=== PATIENT | female | born 1980 | race Caucasian/White ===

== ENCOUNTER 2016-11-28 18:02 | Emergency (ER) | payer OTHER, MEDICAID ==
[2016-11-28] MEDS ORDERED: LORazepam 2 MG/ML INJ ONE (18:41)
[2016-11-28] MEDS ORDERED: ONDANSETRON 4 MG/2 ML VIAL IVP ONE (18:43)
[2016-11-28] MEDS ORDERED: NS 1,000 ML IV ONE (18:43)
--- NOTE | 2016-11-28 18:57 | EDPHY ---
General Time Seen by Provider: 11/28/16 18:25 Narrative: CHIEF COMPLAINT: Seizure, head injury HISTORY OF PRESENT ILLNESS: Mother and father present patient. Mother says that she was walking in her home when she noticed that her daughter was about to have a seizure. She attempt to help her when she started to have seizure but she could not reach her. The patient started to have a tonic-clonic seizure and fell to the floor, striking her back of her head and her face. This lasted for several seconds. Was no incontinence. No apparent injury to the mouth or tongue. She was postictal for 7-10 minutes. She is reportedly back to baseline at this time. She is complaining of a posterior headache and there is an abrasion in this area. She also has some facial pain. No nausea. No recent illness. She does have a history of remote CVA with subsequent epilepsy. She is on Lamictal, primidone, and p.r.n. Klonopin. No recurrent seizure since today's episode. She normally has 1 approximately once a month. There have been increased stressors over the past week in their home, which the mother feels has contribute to this as it has in the past. Her neurologist is Dr. Morrison. REVIEW OF SYSTEMS: Ten systems reviewed and are negative unless otherwise noted in the HPI PERTINENT MEDICAL HISTORY: EXAMINATION General Appearance: Alert, no distress Head: normocephalic. No crepitus or deformity. There is mild abrasion hematoma to the occiput. No Harvey sign. No raccoon eyes. Eyes: Pupils equal and round, no conjunctival pallor or injection. EOMs intact. No nystagmus. ENT, Mouth: Mucous membranes moist. Uvula midline. No erythema, laceration or ecchymosis. Neck: Normal inspection, supple, non-tender. Painless range of motion all planes. No rigidity or meningismus. Respiratory: Lungs are clear to auscultation. No wheezing, rhonchi or crackles. Cardiovascular: Regular rate and rhythm. No murmur. Pulses intact distally. Gastrointestinal: Abdomen is soft and nontender. No CVA tenderness. No tympany rigidity. Back: non-tender, no bony abnormalities Neurological: A&O, nonfocal. Strength is symmetric in all limbs. Tonic- clonic activity witnessed during my examination. Skin: Warm and dry, no rash Extremities: Nontender, no pedal edema Psychiatric: Mood and affect normal DIFFERENTIAL DIAGNOSES: Including but not limited to epilepsy, seizure disorder, recurrent seizure, status epilepticus MDM: 6:40 p.m. Seizure in a patient with known epilepsy. At the end of my history of present illness examination, the patient did have a seizure. She exhibited generalized , tonic-clonic activity. This lasted approximately 10-15 seconds. She was postictal immediately but awake and alert with no distress. No medications were administered and she spontaneously resolved. 7:[address] scan of the head is unremarkable for trauma. Labs are within normal limits. Lamictal level is pending as is the primidone level. I re-evaluated the patient. She is awake and alert. She is conversing appropriately. No acute distress. I had originally misunderstood the family my initial history of present illness. This was actually the 9th seizure she has had today that I witnessed, and this is normal for her. She reports that once a month she will have multiple seizures in a day. Their primary concern was from the fall and closed head injury. CT scan does not show any trauma nor did she have any neuro deficits. They are comfortable with being discharged home and actually prefer this at this time. They will follow up with her established neurologist this week. Return to ER for any subsequent falls or injury. She is discharged home with normal conversation in no acute distress. SUPERVISION: This patient was independently evaluated without direct examination by the attending physician. Case was discussed with attending physician. - History Smoking Status: Never smoked - Objective Vital Signs: Initial Vital Signs Temperature (C) 98.2 F 11/28/16 18:04 Heart Rate 88 11/28/16 18:04 Respiratory Rate 18 11/28/16 18:04 Blood Pressure 123/87 H 11/28/16 18:04 O2 Sat (%) 94 11/28/16 18:04 O2 Delivery Mode Room Air Allergies/Adverse Reactions: banana Allergy (Severe, Verified 11/28/16 18:04) Other-Enter Comments phenytoin sodium extended [From Dilantin] Allergy (Severe, Verified 11/28/16 18: 04) body swelling red (food color) Allergy (Severe, Verified 11/28/16 18:04) Other-Enter Comments phenytoin sodium [From Dilantin] Allergy (Unknown, Verified 03/29/17 18:04) Home Medications: Medication Instructions Recorded Cetirizine [ZyrTEC 10 mg (*)] 10 mg PO DAILY 07/12/16 Primidone [Mysoline] 50 mg PO DAILY 07/12/16 acetaZOLAMIDE [Diamox] 250 mg PO DAILY 07/12/16 clonazePAM [Klonopin (*)] 0.5 mg PO DAILY 07/12/16 lamoTRIgine [LamICTAL 100 MG (*)] 100 mg PO DAILY 07/12/16 Acetaminophen [Tylenol 325mg (*)] 325 - 650 mg PO Q4HRS PRN #0 tab 07/13/16 Laboratory Results: Laboratory Results 11/28/16 18:50 11/28/16 18:50 11/28/16 11/28/16 11/28/16 18:50 18:50 18:50 WBC 12.50 10^3/uL H 10^3/uL (3.80-9.50) RBC 5.17 10^6/uL 10^6/uL (4.18-5.33) Hgb 17.1 g/dL H g/dL (12.6-16.3) Hct 48.7 % H % (38.0-47.0) MCV 94.2 fL fL (81.5-99.8) MCH 33.1 pg pg (27.9-34.1) MCHC 35.1 g/dL g/dL (32.4-36.7) RDW 11.9 % % (11.5-15.2) Plt Count 285 10^3/uL 10^3/uL (150-400) MPV 11.4 fL fL (8.7-11.7) Neut % (Auto) 74.9 % H % (39.3-74.2) Lymph % (Auto) 19.3 % % (15.0-45.0) [place] % (Auto) 4.7 % % (4.5-13.0) Eos % (Auto) 0.1 % L % (0.6-7.6) Baso % (Auto) 0.5 % % (0.3-1.7) Nucleat RBC Rel Count 0.0 % % (0.0-0.2) Absolute Neuts (auto) 9.37 10^3/uL H 10^3/uL (1.70-6.50) Absolute Lymphs (auto) 2.41 10^3/uL 10^3/uL (1.00-3.00) Absolute Monos (auto) 0.59 10^3/uL 10^3/uL (0.30-0.80) Absolute Eos (auto) 0.01 10^3/uL L 10^3/uL (0.03-0.40) Absolute Basos (auto) 0.06 10^3/uL 10^3/uL (0.02-0.10) Absolute Nucleated RBC 0.00 10^3/uL 10^3/uL (0-0.01) Immature Gran % 0.5 % % (0.0-1.1) Immature Gran # 0.06 10^3/uL 10^3/uL (0.00-0.10) Sodium 143 mEq/L mEq/L (134-144) Potassium 4.0 mEq/L mEq/L (3.5-5.2) Chloride 106 mEq/L mEq/L (97-110) Carbon Dioxide 22 mEq/l mEq/l (22-31) Anion Gap 15 mEq/L mEq/L (8-16) BUN 10 mg/dL mg/dL (7-23) Creatinine 0.8 mg/dL mg/dL (0.6-1.0) Estimated GFR > 60 Glucose 111 mg/dL H mg/dL (70-100) Calcium 9.8 mg/dL mg/dL (8.5-10.4) Magnesium 2.0 mg/dL mg/dL (1.6-2.3) Creatine Kinase 120 IU/L IU/L (0-156) Lamotrigine Pending Medications Given: Discontinued Medications Sodium Chloride (Ns) 1,000 mls @ 0 mls/hr IV ONCE ONE PRN Reason: Wide Open Stop: 11/28/16 18:44 Last Admin: 11/28/16 19:26 Dose: 1,000 mls Lorazepam (Ativan Injection) 1 mg IVP EDNOW ONE Stop: 11/28/16 19:01 Last Admin: 11/28/16 19:01 Dose: 1 mg Ondansetron HCl (Zofran) 4 mg IVP EDNOW ONE Stop: 11/28/16 18:44 Last Admin: 11/28/16 19:27 Dose: 4 mg Departure - Departure Disposition: Home, Routine, Self-Care Clinical Impression: Seizure Closed head injury Qualifiers: Encounter type: initial encounter Qualified Code(s): S09.90XA - Unspecified injury of head, initial encounter Condition: Good Instructions: Concussion (ED), Head Injury (ED), Epilepsy (ED) Additional Instructions: Seizure precautions at home. Contact urologist in the morning. Return to the ER for any subsequent falls or injuries Referrals: Heather Lewis MD [Primary Care Provider] - As per Instructions STACI MORRISON V [Non Staff Provider ()] - As per Instructions
[2016-11-28 18:58] LABS: % IMMATURE GRANULYOCYTES 0.5 % (0.0-1.1); ABSOLUTE IMMATURE GRANULOCYTES 0.06 10^3/uL (0.00-0.10); ADD DIFF? NO; ADD MORPH? NO; ADD SCAN? NO; ATYPICAL LYMPHOCYTE FLAG 0 (0-99); FRAGMENT RBC FLAG 0 (0-99); HEMATOCRIT 48.7 % (38.0-47.0); HEMOGLOBIN 17.1 g/dL (12.6-16.3); LEFT SHIFT FLG 0 (0-99); LIPEMIA HEMOLYSIS FLAG 90 (0-99); MEAN CELL HEMOGLOBIN 33.1 pg (27.9-34.1); MEAN CELL HEMOGLOBIN CONCENTR. 35.1 g/dL (32.4-36.7); MEAN CELL VOLUME 94.2 fL (81.5-99.8); MEAN PLATELET VOLUME 11.4 fL (8.7-11.7); PLATELET CLUMPS FLAG 0 (0-99); PLATELET COUNT 285 10^3/uL (150-400); RED BLOOD CELL COUNT 5.17 10^6/uL (4.18-5.33); RED CELL DISTRIBUTION WIDTH 11.9 % (11.5-15.2)
[2016-11-28] MEDS ORDERED: LORazepam 2 MG/ML INJ IVP ONE (19:00)
[2016-11-28 19:14] LABS: ANION GAP 15 mEq/L (8-16); CALCIUM 9.8 mg/dL (8.5-10.4); CARBON DIOXIDE 22 mEq/l (22-31); CHLORIDE 106 mEq/L (97-110); CREATININE 0.8 mg/dL (0.6-1.0); GLOMERULAR FILTRATION RATE > 60; GLUCOSE 111 mg/dL (70-100); SODIUM 143 mEq/L (134-144)
[2016-11-28 19:31] VITALS: RESP 16
[2016-11-28 20:20] VITALS: BP 126/72; PULSE 75; TEMP 97.5; O2SAT 98
== END 2016-11-28 20:20 | disposition home or self-care (01) ==
DX: S09.90XA Unspecified injury of head, initial encounter (principal); R56.9 Unspecified convulsions; W01.198A Fall on same level from slipping, tripping and stumbling with subsequent striking against other object, initial encounter; Y92.009 Unspecified place in unspecified non-institutional (private) residence as the place of occurrence of the external cause
CPT/HCPCS: 70450; 96361; 96374; 96375; 99285; J2060; J2405; 80175-90

== ENCOUNTER 2017-10-28 12:50 | Emergency (ER) | payer OTHER, MEDICAID ==
[2017-10-28 13:05] VITALS: RESP 16; TEMP 99.1
--- NOTE | 2017-10-28 14:02 | EDPHY ---
H & P Time Seen by Provider: 10/28/17 13:36 HPI/ROS: CHIEF COMPLAINT: Recurrent seizures HISTORY OF PRESENT ILLNESS: 37-year-old female with developmental delay and seizure disorder presents with recurrent seizures. She has difficult-to- control seizures and has multiple seizures every week. She is currently taking Vimpat and Lamictal. The Vimpat is a new medication for her and has recently been increased. Since she has been on Vimpat she has had increasing seizures. Today she had 8 grand mal seizures, each lasting approximately 1-2 minutes and witnessed by her parents. She now is back to normal. She was sent to the ED by her neurologist, Dr. Gregorio Morrison. REVIEW OF SYSTEMS: Constitutional: No fever, no chills Eyes: No visual changes ENT: No sore throat Respiratory: No cough, no shortness of breath Cardiac: No chest pain Gastrointestinal: no vomiting, no abdominal pain Genitourinary: no dysuria Musculoskeletal: No leg pain or swelling Skin: No rash Neurological: No headache, no weakness Psychiatric: No anxiety Past Medical/Surgical History: Developmental delay Seizure disorder Social History: Lives with parents Smoking Status: Never smoked Physical Exam: General Appearance: Alert, pleasant, conversant Eyes: Pupils equal and round, no conjunctival pallor ENT, Mouth: Mucous membranes moist Neck: Normal inspection Respiratory: Lungs are clear to auscultation Cardiovascular: Regular rate and rhythm Gastrointestinal: Abdomen is soft and nontender Neurological: Alert, oriented to person and place, cranial nerves II through XII intact, motor 5/5, sensory grossly intact Skin: Warm and dry Extremities: Normal inspection Psychiatric: Flat affect Constitutional: Initial Vital Signs Temperature (C) 37.3 C 10/28/17 12:55 Heart Rate 100 10/28/17 12:55 Respiratory Rate 16 10/28/17 12:55 Blood Pressure 138/82 H 10/28/17 12:55 O2 Sat (%) 93 10/28/17 12:55 O2 Delivery Mode Room Air Allergies/Adverse Reactions: banana Allergy (Severe, Verified 11/28/16 18:04) Other-Enter Comments phenytoin sodium extended [From Dilantin] Allergy (Severe, Verified 11/28/16 18: 04) body swelling red (food color) Allergy (Severe, Verified 11/28/16 18:04) Other-Enter Comments phenytoin sodium [From Dilantin] Allergy (Unknown, Verified 11/28/16 18:04) Home Medications: Medication Instructions Recorded Cetirizine [ZyrTEC 10 mg (*)] 10 mg PO DAILY 07/12/16 Primidone [Mysoline] 50 mg PO DAILY 07/12/16 acetaZOLAMIDE [Diamox] 250 mg PO DAILY 07/12/16 clonazePAM [Klonopin (*)] 0.5 mg PO DAILY 07/12/16 lamoTRIgine [LamICTAL 100 MG (*)] 100 mg PO DAILY 07/12/16 Acetaminophen [Tylenol 325mg (*)] 325 - 650 mg PO Q4HRS PRN #0 tab 07/13/16 Vimpat 10/28/17 Medical Decision Making ED Course/Re-evaluation: This is a complex patient who presents with increasing seizures. Consulted with on-call neurologist for Dr. Morrison, todd d/c pt home. Plan to decrease Vimpat by 50mg every 3 days. Clonazepam as needed for recurrent seizure. Lamictal level ordered at parents' request, parents will c/b for results. No seizures while in the ED. Differential Diagnosis: Differential diagnosis includes though it is not limited to status epilepticus, hypoglycemia, intracranial hemorrhage, CVA, benzodiazepine withdrawal, alcohol withdrawal, epilepsy. - Data Points Laboratory Results: Laboratory Results 10/28/17 13:15 10/28/17 13:15 10/28/17 13:15 Lamotrigine 8.1 mcg/mL mcg/mL (2.5 - 15.0) Departure - Departure Disposition: Home, Routine, Self-Care Clinical Impression: Seizure disorder Condition: Good Instructions: Epilepsy (ED) Additional Instructions: If Isaura has a recurrent seizure, give her Clonazepam. If the seizures persist, call Dr. Morrison or return to the ED. Referrals: Heather Lewis MD [Primary Care Provider] - As per Instructions GREGORIO MORRISON V [Non Staff Provider ()] - As per Instructions (Go to Dr. Morrison' s office. They have samples of Vimpat ready for you (at lower dosages).)
[2017-10-28 14:35] VITALS: BP 115/76; PULSE 80; O2SAT 96
[2017-10-28 14:38] LABS: PLATELET COUNT 249 10^3/uL (150-400)
== END 2017-10-28 14:35 | disposition home or self-care (01) ==
LOC: EDUNIT#
DX: G40.909 Epilepsy, unspecified, not intractable, without status epilepticus (principal)
CPT/HCPCS: 80175-90

== ENCOUNTER 2018-01-29 15:46 | Emergency (ER) | payer OTHER, MEDICAID ==
--- NOTE | 2018-01-29 16:56 | EDPHY ---
H & P Stated Complaint: SZ LAST WEEK,DID NOT GET SEEN,BLEEDING GUMS/DECREASING HEARING TODAY Time Seen by Provider: 01/29/18 16:28 - Personal History LMP (Females 10-55): 1-7 Days Ago Current Tetanus/Diphtheria Vaccine: No Tetanus Vaccine Date: 2006 - Medical/Surgical History Hx Asthma: No Hx Chronic Respiratory Disease: No Hx Diabetes: No Hx Cardiac Disease: No Hx Renal Disease: No Hx Cirrhosis: No Hx Alcoholism: No Hx HIV/AIDS: No Hx Splenectomy or Spleen Trauma: No Other PMH: epilepsy, hearing impaired, CVA (age 13), anoxic brain injury at , microcephaly, vision impaired, thyroidnodules, gallbladder removal, developmental delay - Social History Smoking Status: Never smoked Constitutional: Initial Vital Signs Temperature (C) 36.9 C 01/29/18 15:56 Heart Rate 80 01/29/18 15:56 Respiratory Rate 18 01/29/18 15:56 Blood Pressure 118/81 H 01/29/18 15:56 O2 Sat (%) 94 01/29/18 15:56 O2 Delivery Mode Room Air Allergies/Adverse Reactions: banana Allergy (Severe, Verified 11/28/16 18:04) Other-Enter Comments phenytoin sodium extended [From Dilantin] Allergy (Severe, Verified 11/28/16 18: 04) body swelling red (food color) Allergy (Severe, Verified 11/28/16 18:04) Other-Enter Comments phenytoin sodium [From Dilantin] Allergy (Unknown, Verified 11/28/16 18:04) Home Medications: Medication Instructions Recorded Cetirizine [ZyrTEC 10 mg (*)] 10 mg PO DAILY 07/12/16 Primidone [Mysoline] 50 mg PO DAILY 07/12/16 acetaZOLAMIDE [Diamox] 250 mg PO DAILY 07/12/16 clonazePAM [Klonopin (*)] 0.5 mg PO DAILY 07/12/16 lamoTRIgine [LamICTAL 100 MG (*)] 100 mg PO DAILY 07/12/16 Acetaminophen [Tylenol 325mg (*)] 325 - 650 mg PO Q4HRS PRN #0 tab 07/13/16 Valium 5 MG (*) 01/29/18 Medical Decision Making - Diagnostics Imaging Results: Imaging Impressions Head CT 01/29/18 16:35 Impression: 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 No evidence for acute intracranial abnormality. Results given to Dr. Erlin Quiñonez on January 29, 2018 at 1724 hours. Imaging: Discussed imaging studies w/ order desk caller Radiologist ED Course/Re-evaluation: CHIEF COMPLAINT: Seizure, head injury HISTORY OF PRESENT ILLNESS: This patient is a 37 y/o female with history of epilepsy, microcephaly, and developmental delay arriving with her parents for evaluation of possible head injury following a seizure. Last week, the patient had a series of multiple seizures in two days. During one of these, she fell out of her reclining chair and hit an octagonal coffee table with the left side of her face. Following the incident, she has complained of decreased hearing in her left ear. She denies any other trauma from this event. Her parents state her Lamictal dose was recently raised from 400 to 500mg prior to her seizures, and she discontinued Vimpat 200mg bid about one month ago. She is followed by Dr. Gregorio Morrison, a neurologist in [place]. Last night, the patient's gums were bleeding while she was eating corn and her parents became concerned regarding possible intracranial processes. The patient's mental status has been normal per her parents. No fever, vomiting , vision changes, or other associated symptoms. REVIEW OF SYSTEMS: A 10 point review of systems was performed and is negative with the exception of the elements mentioned in the history of present illness. PHYSICAL EXAM: HR, BP, O2 Sat, RR. Temp noted General Appearance: Alert, well hydrated, appropriate, and non-toxic appearing. Head: Atraumatic without scalp tenderness or obvious injury Eyes: Pupils equal, round, reactive to light and accommodation, EOMI, no trauma , no injection. Ears: Hearing aids in place bilaterally Nose: Atraumatic, no rhinorrhea, clear. Throat: There is no erythema or exudates, no lesions, normal tonsils, mucus membranes moist. Neck: Supple, nontender, no lymphadenopathy. Respiratory: No retractions, no distress, no wheezes, and no accessory muscle use. Lungs are clear to auscultation bilaterally. Cardiovascular: Regular rate and rhythm, no murmurs, rubs, or gallops. Good capillary refill all extremities. Gastrointestinal: Abdomen is soft, nontender, non-distended, no masses, no rebound, no guarding, no peritoneal signs. Musculoskeletal: Normal active ROM of all extremities, atraumatic. Neurological: Alert, appropriate, and interactive. The patient has normal DTRs and non-focal cranial nerves, motor, sensory, and cerebellar exam. Skin: No rashes, good turgor, no nodules on palpation. Past medical history: Epilepsy, hearing impaired, CVA (age 13), anoxic brain injury at , microcephaly, vision impaired, thyroid nodules, developmental delay Past surgical history: Cholecystectomy Family history: Noncontributory. Social history: Family at bedside. Lives in [place]. Does not abuse tobacco, drugs, or alcohol. DIFFERENTIAL DIAGNOSIS: The differential diagnosis for the patient's trauma included but was not limited to intracranial injury, long bone and pelvic bone fractures, spinal injury, intra-abdominal injury, and intra-thoracic injury. MEDICAL DECISION MAKIN37 y/o female with history of epilepsy, microcephaly, and developmental delay presents following a seizure and possible head injury one week ago. Given the patient's presentation, I have low suspicion for acute intracranial processes. Plan for CT head to r/o any acute processes secondary to the patient's seizure or head injury. Plan for labs including CBC, chemistries, coag. 17:[address] Jones, radiologist. No acute processes on CT. Laboratory studies unremarkable. Reassessed patient. She and her parents are relieved that there are no acute processes noted. Plan to discharge home in good condition. They will follow up with their primary care provider and neurologist for discussion of the patient' s medication regimen. Follow up and return precautions discussed. The patient and her parents are comfortable with this plan. - Data Points Laboratory Results: Laboratory Results 01/29/18 17:27 01/29/18 16:35 01/29/1818 01/29/18 17:27 17:27 16:35 WBC 10.97 10^3/uL H 10^3/uL (3.80-9.50) RBC 4.67 10^6/uL 10^6/uL (4.18-5.33) Hgb 15.2 g/dL g/dL (12.6-16.3) Hct 44.2 % % (38.0-47.0) MCV 94.6 fL fL (81.5-99.8) MCH 32.5 pg pg (27.9-34.1) MCHC 34.4 g/dL g/dL (32.4-36.7) RDW 12.0 % % (11.5-15.2) Plt Count 236 10^3/uL 10^3/uL (150-400) MPV 11.1 fL fL (8.7-11.7) Neut % (Auto) 57.2 % % (39.3-74.2) Lymph % (Auto) 31.4 % % (15.0-45.0) [place] % (Auto) 6.4 % % (4.5-13.0) Eos % (Auto) 4.3 % % (0.6-7.6) Baso % (Auto) 0.5 % % (0.3-1.7) Nucleat RBC Rel Count 0.0 % % (0.0-0.2) Absolute Neuts (auto) 6.28 10^3/uL 10^3/uL (1.70-6.50) Absolute Lymphs (auto) 3.44 10^3/uL H 10^3/uL (1.00-3.00) Absolute Monos (auto) 0.70 10^3/uL 10^3/uL (0.30-0.80) Absolute Eos (auto) 0.47 10^3/uL H 10^3/uL (0.03-0.40) Absolute Basos (auto) 0.06 10^3/uL 10^3/uL (0.02-0.10) Absolute Nucleated RBC 0.00 10^3/uL 10^3/uL (0-0.01) Immature Gran % 0.2 % % (0.0-1.1) Immature Gran # 0.02 10^3/uL 10^3/uL (0.00-0.10) PT 12.7 SEC SEC (12.0-15.0) INR 0.93 (0.83-1.16) Sodium 141 mEq/L mEq/L (135-145) Potassium 4.6 mEq/L mEq/L (3.3-5.0) Chloride 105 mEq/L mEq/L (97-110) Carbon Dioxide 22 mEq/l mEq/l (22-31) Anion Gap 14 mEq/L mEq/L (8-16) BUN 13 mg/dL mg/dL (7-23) Creatinine 0.8 mg/dL mg/dL (0.6-1.0) Estimated GFR > 60 Glucose 81 mg/dL mg/dL (70-100) Calcium 9.3 mg/dL mg/dL (8.5-10.4) 01/29/18 16:35 WBC REJ RBC Not Reported Hgb Not Reported Hct Not Reported MCV Not Reported MCH Not Reported MCHC Not Reported RDW Not Reported Plt Count Not Reported MPV Not Reported Neut % (Auto) Not Reported Lymph % (Auto) Not Reported [place] % (Auto) Not Reported Eos % (Auto) Not Reported Baso % (Auto) Not Reported Nucleat RBC Rel Count Not Reported Absolute Neuts (auto) Not Reported Absolute Lymphs (auto) Not Reported Absolute Monos (auto) Not Reported Absolute Eos (auto) Not Reported Absolute Basos (auto) Not Reported Absolute Nucleated RBC Not Reported Immature Gran % Not Reported Immature Gran # Not Reported PT INR Sodium Potassium Chloride Carbon Dioxide Anion Gap BUN Creatinine Estimated GFR Glucose Calcium Departure - Departure Disposition: Home, Routine, Self-Care Clinical Impression: Seizure disorder Condition: Good Instructions: Recurrent Seizures in Adults (ED) Additional Instructions: Follow up with your primary care provider. Return to the emergency department for fever, recurrent seizures lasting more than 5 minutes, difficulty breathing, or other worsening of condition or further concerns. Referrals: Heather Lewis MD [Primary Care Provider] - As per Instructions Report Scribed for: Erlin Quiñonez Report Scribed by: Ariadna Ellis Date of Report: 01/29/18 Time of Report: 17:37
[2018-01-29 17:35] LABS: PLATELET COUNT 236 10^3/uL (150-400)
[2018-01-29 17:46] LABS: INR 0.93 (0.83-1.16); PROTIME(PATIENT) 12.7 SEC (12.0-15.0)
[2018-01-29 17:54] VITALS: BP 125/85
== END 2018-01-29 17:54 | disposition home or self-care (01) ==
DX: G40.909 Epilepsy, unspecified, not intractable, without status epilepticus (principal); Z86.73 Personal history of transient ischemic attack (TIA), and cerebral infarction without residual deficits

== ENCOUNTER → 2019-01-28 | Outpatient (CLI) | payer OTHER, MEDICAID | LOC: FIMAGING 15:15 ==